=== PATIENT | male | born 1960 | race Caucasian/White ===

== ENCOUNTER 2023-04-12 10:25 | Outpatient (CLI) | payer BC | END 2023-04-12 10:26 | disposition home or self-care (01) | LOC: RAD 10:25 | PROVIDERS: ATTEND Nurse Practitioner Family | DX: M25.521 Pain in right elbow (principal) ==

== ENCOUNTER 2025-10-31 10:04 | Outpatient (CLI) | payer BC | END 2025-10-31 10:05 | disposition home or self-care (01) | LOC: BICRAD 10:04 | PROVIDERS: ATTEND Family Medicine | DX: L97.919 Non-pressure chronic ulcer of unspecified part of right lower leg with unspecified severity (principal); L03.115 Cellulitis of right lower limb; R60.0 Localized edema; T79.7XXA Traumatic subcutaneous emphysema, initial encounter ==